=== PATIENT | female | born 1985 ===

== ENCOUNTER 2017-02-01 10:40 | Emergency (ER) | payer MEDICAID, OTHER ==
[2017-02-01 10:40] VITALS: BMI 19.7
[2017-02-01 10:49] VITALS: O2SAT 100
[2017-02-01 11:41] LABS: RBC URINE 8 /hpf (0-3); URINE BILIRUBIN NEGATIVE (NEGATIVE); URINE BLOOD 2+ (NEGATIVE); URINE COLOR Yellow (YELLOW); URINE GLUCOSE (UA) NORMAL (Normal); URINE KETONE NEGATIVE (NEGATIVE); URINE LEUKOCYTE ESTERASE NEG Leu/uL (Negative); URINE PROTEIN NEGATIVE (NEGATIVE); URINE UROBILINOGEN NORMAL mg/dL (0.2-1.0); WBC URINE 1 /hpf (0-5)
[2017-02-01] MEDS ORDERED: Sodium Chloride 0.9% 1,000 ML IV ONE (11:53)
[2017-02-01 12:03] LABS: BASO # 0.1 K/uL (0.0-0.2); EOS % 0.6 % (0.0-4.0); HEMATOCRIT 38.6 % (34.0-47.0); LYMPH # 1.6 K/uL (1.0-4.3); LYMPH % 24.4 % (20.0-40.0); MEAN CELL VOLUME 89.8 fL (81.0-99.0); MEAN CORPUSCULAR HEMOGLOBIN 29.7 pg (27.0-31.0); MEAN PLATELET VOLUME 9.5 fL (7.2-11.7); MONO # 0.4 K/uL (0.0-0.8); MONO % 5.5 % (0.0-10.0); RED CELL DISTRIBUTION WIDTH 12.8 % (11.5-14.5); WHITE BLOOD COUNT 6.5 K/uL (4.8-10.8)
[2017-02-01 12:17] LABS: CHLORIDE 100 mmol/L (98-107); POTASSIUM 3.6 mmol/L (3.6-5.2); SODIUM 137 mmol/L (132-148)
--- NOTE | 2017-02-01 12:18 | C.PDOC ---
History Of Present Illness 31 y/o female presents to ED with c/o pelvic cramping and pain radiating to her lower back, associated with vaginal bleeding and nausea for 10 days. Patient states LMP was 4/25 and she admits to history of irregular menses. Patient denies vomiting, diarrhea, dysuria/hematuria, fever, vaginal discharge. Time Seen by Provider: 02/01/17 11:09 Chief Complaint (Nursing): Abdominal Pain History Per: Patient History/Exam Limitations: no limitations Onset/Duration Of Symptoms: Days Current Symptoms Are (Timing): Still Present Severity: Mild Location Of Pain/Discomfort: Suprapubic Radiation Of Pain To:: Back Quality Of Discomfort: Cramping, "Pain" Associated Symptoms: Nausea, Back Pain. denies: Fever, Chills, Vomiting, Diarrhea, Urinary Symptoms Past Medical History Reviewed: Historical Data, Nursing Documentation, Vital Signs Vital Signs: Last Vital Signs Temp 98.5 F 02/01/17 14:02 Pulse 78 02/01/17 14:02 Resp 18 02/01/17 14:02 BP 103/67 02/01/17 14:02 Pulse Ox 100 02/01/17 14:02 - Medical History PMH: No Chronic Diseases Family History: States: No Known Family Hx - Social History Hx Alcohol Use: No Hx Substance Use: No - Immunization History Hx Tetanus Toxoid Vaccination: No Hx Influenza Vaccination: No Hx Pneumococcal Vaccination: No Review Of Systems Except As Marked, All Systems Reviewed And Found Negative. Constitutional: Negative for: Fever, Chills Respiratory: Negative for: Cough, Shortness of Breath Gastrointestinal: Positive for: Nausea. Negative for: Vomiting, Diarrhea Genitourinary: Positive for: Vaginal Bleeding, Pelvic Pain. Negative for: Dysuria, Vaginal Discharge Skin: Negative for: Rash Physical Exam - Physical Exam Appears: Well, Non-toxic, Other (in mild pain ) Skin: Warm, Dry, No Rash Head: Normacephalic Oral Mucosa: Moist Cardiovascular: Rhythm Regular Respiratory: Normal Breath Sounds, No Rales, No Rhonchi, No Wheezing Gastrointestinal/Abdominal: Bowel Sounds, Soft, Tenderness (mild, suprapubic TTP , (-) McBurney's, (-) Rovsing's), No Guarding, No Rebound Back: Normal Inspection, No CVA Tenderness Extremity: Normal ROM Neurological/Psych: Oriented x3 ED Course And Treatment - Laboratory Results Result Diagrams: 02/01/17 11:58 02/01/17 11:58 O2 Sat by Pulse Oximetry: 100 (RA) Pulse Ox Interpretation: Normal Progress Note: Blood work, UA, Upreg ordered and reviewed. Patient given IV NS bolus, IV zofran, and IV toradol. 13:50- On reassessment, patient is resting comfortably, in no pain/distress. On exam, abdomen is soft and nontender. Blood work, UA unremarkable, UPreg (-). Patient instructed to follow up with ob /lug loader within 1 week, given rxs for Naprosyn, Tylenol #3. She understands she should return to ED if symptoms worsen. Reevaluation Time: 13:30 Reassessment Condition: Improved (Patient reassessed, states she feels better but still has some pelvic cramping. PO Naprosyn ordered.) Disposition Counseled Patient/Family Regarding: Studies Performed, Diagnosis, Need For Followup, Rx Given - [facility] [Outside] Disposition: HOME/ ROUTINE Disposition Time: 13:50 Condition: STABLE Additional Instructions: SEGUIMIENTO CON OB / SENIOR MAINTENANCE TECHNICIAN DENTRO DE 1 SEMANA USE LOS MEDICAMENTOS QUE CARLOS NECESARIOS PARA EL DOLOR BEBIDA DE FLUIDOS NATHANIEL DEVUELVA A ER SI LOS SNTOMAS EMPEORARAN Prescriptions: Acetaminophen with Codeine [Tylenol with Codeine #3 Tablet] 1 each PO Q6 PRN # 12 tablet PRN Reason: pain Naproxen [Naprosyn Tab] 375 mg PO BID PRN #15 tab PRN Reason: pain Instructions: Dysmenorrhea (ED) Print Language: CROATIAN - POA Present On Arrival: None - Clinical Impression Clinical Impression: Irregular menses, Dysmenorrhea - Scribe Statement The provider has reviewed the documentation as recorded by the Scribkerry Cooney All medical record entries made by the Scribe were at my direction and personally dictated by me. I have reviewed the chart and agree that the record accurately reflects my personal performance of the history, physical exam, medical decision making, and the department course for this patient. I have also personally directed, reviewed, and agree with the discharge instructions and disposition.
[2017-02-01 12:19] LABS: GFR AFRICAN-AMERICAN > 60
[2017-02-01 12:20] LABS: ALB/GLOB RATIO 2.2 (1.0-2.1); ALKALINE PHOSPHATASE 54 U/L (38-126); ALT/SGPT 31 U/L (9-52); AST/SGOT 19 U/L (14-36); BILIRUBIN,TOTAL < 0.1 mg/dL (0.2-1.3); BLOOD UREA NITROGEN 11 mg/dL (7-17); CALCIUM 8.7 mg/dl (8.6-10.4); CARBON DIOXIDE 28 mmol/L (22-30); GLUCOSE,RANDOM 76 mg/dL (65-105); TOTAL PROTEIN 7.1 g/dL (6.3-8.3)
[2017-02-01] MEDS ORDERED: Sodium Chloride 0.9% 1,000 ML ONE (12:25)
[2017-02-01] MEDS ORDERED: Naproxen 550 mg Tab PO STA (13:37)
[2017-02-01] MEDS ORDERED: Naproxen 550 mg Tab PO ONE (13:41)
[2017-02-01 14:02] VITALS: BP 103/67; PULSE 78; RESP 18; TEMP 98.5
== END 2017-02-01 14:08 | disposition home or self-care (01) ==
LOC: C.ER 10:40
DX: N92.6 Irregular menstruation, unspecified (principal); N94.6 Dysmenorrhea, unspecified
CPT/HCPCS: 80053; 81001; 84703; 85025; 96361; 96374; 96375; 99285; J1885; J2405; J7040

== ENCOUNTER 2017-02-05 19:08 | Emergency (ER) | payer OTHER ==
[2017-02-05 19:09] VITALS: BMI 19.7
[2017-02-05 19:23] VITALS: BP 101/70; TEMP 97.9
--- NOTE | 2017-02-05 19:34 | C.PDOC ---
History Of Present Illness started with some chest discomfort Saturday night, which worsened. Dull , aching discomfort in her chest radiating into her left arm. No slurred speech, no visual changes , good strength equal, bilateral/. Time Seen by Provider: 02/05/17 19:34 Chief Complaint (Nursing): Chest Pain History Per: Patient History/Exam Limitations: no limitations Onset/Duration Of Symptoms: Days (2) Current Symptoms Are (Timing): Still Present Context: Other Severity: Moderate Pain Scale Rating Of: 4 Quality: Dull, Aching Associated Symptoms: denies: Nausea, Dyspnea Exacerbating Factors: Movement Alleviating Factors: None Recent travel outside of the [place]: No Additional History Per: Patient, Family Past Medical History Reviewed: Historical Data, Nursing Documentation, Vital Signs Vital Signs: Last Vital Signs Temp 97.9 F 02/05/17 19:23 Pulse 74 02/05/17 20:25 Resp 20 02/05/17 20:25 BP 101/70 02/05/17 20:25 Pulse Ox 99 02/05/17 20:25 Family History: States: No Known Family Hx - Social History Hx Alcohol Use: No Hx Substance Use: No - Immunization History Hx Tetanus Toxoid Vaccination: No Hx Influenza Vaccination: No Hx Pneumococcal Vaccination: No Review Of Systems Constitutional: Negative for: Fever, Chills Eyes: Negative for: Redness ENT: Negative for: Throat Pain Cardiovascular: Positive for: Chest Pain Respiratory: Negative for: Shortness of Breath Gastrointestinal: Negative for: Nausea, Vomiting, Abdominal Pain Genitourinary: Negative for: Dysuria Musculoskeletal: Positive for: Arm Pain. Negative for: Back Pain Skin: Negative for: Rash, Lesions, Jaundice, Bruising Neurological: Negative for: Weakness Psych: Negative for: Anxiety Physical Exam - Physical Exam Appears: Non-toxic, No Acute Distress Skin: Warm, Dry Head: Normacephalic Eye(s): bilateral: Normal Inspection Oral Mucosa: Moist Neck: Trachea Midline, Supple Chest: Symmetrical Cardiovascular: Rhythm Regular Respiratory: No Rales, No Rhonchi, No Wheezing Gastrointestinal/Abdominal: Soft, No Tenderness, No Distention, No Guarding, No Rebound Back: Normal Inspection Extremity: Normal ROM Extremity: Bilateral: Atraumatic, Normal Color And Temperature Neurological/Psych: Oriented x3, Normal Speech, Normal Cognition Gait: Steady ED Course And Treatment - Laboratory Results Result Diagrams: 02/05/17 20:04 02/05/17 20:04 ECG: Interpreted By Me, Viewed By Me ECG Rhythm: Sinus Rhythm (66), Nonspecific Changes O2 Sat by Pulse Oximetry: 100 Pulse Ox Interpretation: Normal - Radiology CXR: Interpreted by Me, Viewed By Me CXR Interpretation: No: Infiltrates, Fracture, Pnemothorax Progress Note: cardiac work up, asa Medical Decision Making Medical Decision Making: I considered the following diagnoses: acute coronary syndrome, pulmonary embolism, lower respiratory infection, aortic dissection/aneurysm, pneumothorax , pericarditis, esophagitis/GERD, zoster and esophageal rupture but found them to be unlikely based on the history, physical exam, and diagnostics. My conclusions regarding the unlikely diagnoses were based on: the absence of significant EKG abnormalities, the lack of suggestive x-ray findings, the absence of significant abnormalities on cardiac monitoring, the absence of asymmetric pulses. Pt feels fine, chest pain free and wants to go home Upon provider reevaluation patient is feeling better, is medically stable, and requires no further treatment in the ED at this time. Patient will be discharged home with Rx for motrin . Counseling was provided and all questions were answered regarding diagnosis and need for follow up with the referred clinic. There is agreement to discharge plan. Return if symptoms persist or worsen. Disposition Counseled Patient/Family Regarding: Studies Performed, Diagnosis, Need For Followup - Disposition Referrals: [facility] [Outside] [facility] [Outside] Disposition: HOME/ ROUTINE Disposition Time: 19:34 Condition: FAIR Prescriptions: Ibuprofen [Motrin] 600 mg PO TID PRN #15 tab PRN Reason: Pain, Moderate (4-7) Instructions: Costochondritis (ED) Print Language: MALAY - Clinical Impression Clinical Impression: Costochondral chest pain, Chest wall pain
[2017-02-05] MEDS ORDERED: Aspirin 325 mg EC Tablets PO STA (19:41)
[2017-02-05 20:08] LABS: RBC URINE 21 /hpf (0-3); URINE BACTERIA RARE (<OCC); URINE BILIRUBIN NEGATIVE (NEGATIVE); URINE BLOOD 2+ (NEGATIVE); URINE COLOR Straw (YELLOW); URINE GLUCOSE (UA) NORMAL (Normal); URINE KETONE NEGATIVE (NEGATIVE); URINE LEUKOCYTE ESTERASE NEG Leu/uL (Negative); URINE PROTEIN NEGATIVE (NEGATIVE); URINE UROBILINOGEN NORMAL mg/dL (0.2-1.0); WBC URINE 3 /hpf (0-5)
[2017-02-05 20:10] LABS: BASO # 0.1 K/uL (0.0-0.2); EOS # 0.1 K/uL (0.0-0.7); EOS % 1.5 % (0.0-4.0); HEMATOCRIT 39.3 % (34.0-47.0); LYMPH # 2.3 K/uL (1.0-4.3); LYMPH % 30.5 % (20.0-40.0); MEAN CORPUSCULAR HEMOGLOBIN 29.7 pg (27.0-31.0); MEAN CORPUSCULAR HGB CONC 33.4 g/dL (33.0-37.0); MEAN PLATELET VOLUME 9.2 fL (7.2-11.7); MONO # 0.6 K/uL (0.0-0.8); MONO % 7.6 % (0.0-10.0); RED CELL DISTRIBUTION WIDTH 12.8 % (11.5-14.5); WHITE BLOOD COUNT 7.5 K/uL (4.8-10.8)
[2017-02-05 20:15] LABS: CHLORIDE 98 mmol/L (98-107)
[2017-02-05 20:16] LABS: INR 1.1; POTASSIUM 4.1 mmol/L (3.6-5.2); SODIUM 137 mmol/L (132-148)
[2017-02-05 20:18] LABS: ALB/GLOB RATIO 1.7 (1.0-2.1); ALKALINE PHOSPHATASE 45 U/L (38-126); AST/SGOT 14 U/L (14-36); BILIRUBIN,TOTAL 0.5 mg/dL (0.2-1.3); BLOOD UREA NITROGEN 12 mg/dL (7-17); CARBON DIOXIDE 28 mmol/L (22-30); GFR AFRICAN-AMERICAN > 60; GLUCOSE,RANDOM 85 mg/dL (65-105)
[2017-02-05 20:19] LABS: ALT/SGPT 23 U/L (9-52); CALCIUM 8.1 mg/dl (8.6-10.4)
[2017-02-05 20:26] VITALS: PULSE 74; RESP 20
[2017-02-05 21:29] VITALS: O2SAT 100
--- NOTE | 2017-02-06 08:21 | RAD ---
PROCEDURE: CHEST RADIOGRAPH, 1 VIEW HISTORY: chest pain COMPARISON: None available. FINDINGS: LUNGS: Clear. PLEURA: No pneumothorax or pleural fluid seen. CARDIOVASCULAR: Normal. OSSEOUS STRUCTURES: No significant abnormalities. VISUALIZED UPPER ABDOMEN: Normal. OTHER FINDINGS: None. IMPRESSION: No active disease.
--- NOTE | 2017-03-05 12:19 | CARD ---
APPROVED REPORT EKG Measurement Heart [id number] <Conclusion> Normal sinus rhythm with sinus arrhythmia Normal ECG
== END 2017-02-05 21:45 | disposition home or self-care (01) ==
LOC: C.ER 19:08
DX: R07.89 Other chest pain (principal)
CPT/HCPCS: 71010; 80053; 81001; 84484; 84703; 85025; 85610; 85730; 96374; 99284; J1885

== ENCOUNTER 2017-10-07 20:33 | Emergency (ER) | payer OTHER ==
[2017-10-07 20:34] VITALS: BMI 19.7
[2017-10-07 20:50] VITALS: BP 112/74; PULSE 78; RESP 18; TEMP 98.4; O2SAT 100
[2017-10-07 21:34] LABS: HEMOGLOBIN 13.4 g/dL (11.0-16.0); MEAN CELL VOLUME 88.9 fL (81.0-99.0); MEAN CORPUSCULAR HEMOGLOBIN 30.8 pg (27.0-31.0); MEAN CORPUSCULAR HGB CONC 34.6 g/dL (33.0-37.0); MEAN PLATELET VOLUME 9.1 fL (7.2-11.7); RBC 4.34 Mil/uL (3.80-5.20); RED CELL DISTRIBUTION WIDTH 12.2 % (11.5-14.5); WHITE BLOOD COUNT 6.9 K/uL (4.8-10.8)
[2017-10-07 21:46] LABS: ALB/GLOB RATIO 1.4 (1.0-2.1); ALT/SGPT 24 U/L (9-52); AST/SGOT 20 U/L (14-36); BLOOD UREA NITROGEN 12 mg/dL (7-17); CALCIUM 8.2 mg/dl (8.6-10.4); GFR AFRICAN-AMERICAN > 60; GFR NON-AFRICAN AMERICAN > 60
--- NOTE | 2017-10-07 23:02 | C.PDOC ---
History Of Present Illness 32 year old female presents to the ER with a complaint of malaise, body aches, headache, and dry cough for the past week. Patient also reports a "heaviness sensation" to the bilateral lower extremities Pt noted that she noticed redness to the 4th left toe 2 days ago now with pain. Denies incontinence, recent trauma , or fever. Time Seen by Provider: 10/07/17 21:00 Chief Complaint (Nursing): Lower Extremity Problem/Injury History Per: Patient History/Exam Limitations: no limitations Onset/Duration Of Symptoms: Days Current Symptoms Are (Timing): Still Present Recent travel outside of the [place]: No Past Medical History Reviewed: Historical Data, Nursing Documentation, Vital Signs Vital Signs: Last Vital Signs Temp 98.4 F 10/07/17 20:47 Pulse 78 10/07/17 20:47 Resp 18 10/07/17 20:47 BP 112/74 10/07/17 20:47 Pulse Ox 100 10/07/17 23:57 - Medical History PMH: No Chronic Diseases Surgical History: No Surg Hx Family History: States: Unknown Family Hx - Social History Hx Alcohol Use: No Hx Substance Use: No - Immunization History Hx Tetanus Toxoid Vaccination: No Hx Influenza Vaccination: Yes Hx Pneumococcal Vaccination: No Review Of Systems Constitutional: Negative for: Fever, Chills Respiratory: Positive for: Cough (Dry) Genitourinary: Negative for: Dysuria, Incontinence, Hematuria Musculoskeletal: Positive for: Other (Bilateral leg "heaviness". Body aches. Left toe redness.) Neurological: Positive for: Headache Physical Exam - Physical Exam Appears: Non-toxic, No Acute Distress Skin: Normal Color, Warm, Dry Head: Atraumatic, Normacephalic Eye(s): bilateral: Normal Inspection Oral Mucosa: Moist Throat: Normal, No Erythema, No Exudate Neck: Normal, Supple Chest: Symmetrical, No Tenderness Cardiovascular: Rhythm Regular Respiratory: Normal Breath Sounds, No Rales, No Rhonchi, No Wheezing Gastrointestinal/Abdominal: Soft, No Tenderness Back: No Vertebral Tenderness, No Paraspinal Tenderness Extremity: Normal ROM (x4), Capillary Refill (<2 seconds), Other (left 4th toe erythematous, warm to touch w/ small pimple to right distal side) Pulses: Left Dorsalis Pedis: Normal, Right Dorsalis Pedis: Normal Neurological/Psych: Oriented x3, Normal Speech, Normal Motor, Normal Sensation Gait: Steady ED Course And Treatment - Laboratory Results Result Diagrams: 10/07/17 21:31 10/07/17 21:31 O2 Sat by Pulse Oximetry: 100 (Room air) Pulse Ox Interpretation: Normal - Other Rad Left foot 4th digit x-ray X-Ray: Interpreted by Me, Viewed By Me Interpretation: No acute fractures or dislocations. Progress Note: Blood work and left foot 4th digit x-ray ordered, results were negative. Toradol administered. On reevaluation, patient reports improvement of pain, discussed imaging and lab results with patient, will start her on antibiotics and instruct to follow up with PMD or return to ER if symptoms worsen. Patient agrees with plan. Disposition - Disposition Referrals: [facility] [Outside] Disposition: HOME/ ROUTINE Disposition Time: 22:58 Condition: STABLE Additional Instructions: Increase PO fluids' Take meds as directed Leg elevation Return to ER if worse Prescriptions: Cephalexin [cephalexin] 500 mg PO QID #20 cap Ibuprofen [Motrin] 1 tab PO TID PRN #20 tab PRN Reason: Pain Instructions: Cellulitis (ED), Viral Syndrome (ED) Forms: [employer] (Uzbek) Print Language: SINHALA - Clinical Impression Clinical Impression: Cellulitis of fourth toe of left foot, Viral illness - PA / SAFETY COORDINATOR / Resident Statement MD/DO has reviewed & agrees with the documentation as recorded. - Scribe Statement The provider has reviewed the documentation as recorded by the Scribe Simon Kamara All medical record entries made by the Scribe were at my direction and personally dictated by me. I have reviewed the chart and agree that the record accurately reflects my personal performance of the history, physical exam, medical decision making, and the department course for this patient. I have also personally directed, reviewed, and agree with the discharge instructions and disposition.
--- NOTE | 2017-10-08 08:21 | RAD ---
PROCEDURE: HISTORY: pain, redness to left 4th toe COMPARISON: None TECHNIQUE: Four views FINDINGS: No fracture or dislocation. Soft tissue swelling and increased density surrounding the 4th distal phalanx IMPRESSION: No fracture or dislocation. Fourth digital soft tissue swelling
== END 2017-10-07 23:18 | disposition home or self-care (01) ==
LOC: C.ER 20:33
DX: L03.032 Cellulitis of left toe (principal); B34.9 Viral infection, unspecified
CPT/HCPCS: 73660; 80053; 85027; 96374; 99284; J1885

== ENCOUNTER 2017-12-29 07:57 | Emergency (ER) | payer OTHER ==
[2017-12-29 07:58] VITALS: BMI 19.7
[2017-12-29 08:09] VITALS: BP 115/77; PULSE 79; RESP 20; TEMP 97.6; O2SAT 99
--- NOTE | 2017-12-29 08:25 | C.PDOC ---
History Of Present Illness 32 y/o F c no PMHx p/w R hand/wrist pain x 2 days since patient had mechanical fall getting out of shower. Denies headstrike, LOC, N/V, complains only of pain in R hand/wrist. Patient took acetaminophen this morning. Time Seen by Provider: 12/29/17 08:18 Chief Complaint (Nursing): Upper Extremity Problem/Injury Past Medical History Vital Signs: Last Vital Signs Temp 97.6 F 12/29/17 08:08 Pulse 79 12/29/17 08:08 Resp 20 12/29/17 08:08 BP 115/77 12/29/17 08:08 Pulse Ox 99 12/29/17 09:28 Family History: States: Unknown Family Hx - Social History Hx Alcohol Use: No Hx Substance Use: No - Immunization History Hx Tetanus Toxoid Vaccination: No Hx Influenza Vaccination: Yes Hx Pneumococcal Vaccination: No Review Of Systems Except As Marked, All Systems Reviewed And Found Negative. Constitutional: Negative for: Fever Respiratory: Negative for: Shortness of Breath Physical Exam - Physical Exam Additional Physical Exam Comments: Gen: NAD Head: AT Neck: No midline tenderness Chest: No tenderness Skin: No laceration Extremities: Mild R hand edema hypothenar, +snuffbox tenderness. No tenderness of forearm, elbow, humerus, shoulder with FROM of all. CV: Radial pulse 2+, cap refill < 2 seconds Neuro: Sensation to light touch intact in digits. Moves all digits. ED Course And Treatment O2 Sat by Pulse Oximetry: 99 Medical Decision Making Medical Decision Making: Toradol for pain. XR to evaluate for fracture. Right hand X-ray: Impression: Negative acute. If pain persists, consider MRI. Right wrist x-ray: Impression: Negative acute. If pain persists, consider MRI. Thumb spica placed. Follow up Ortho/clinic, return to ED for worsening pain, numbness, skin color changes, or any other problem. Disposition - Disposition Referrals: Fernando Ravi III, MD [Staff Provider] - [facility] [Outside] Disposition: HOME/ ROUTINE Disposition Time: 10:08 Condition: STABLE Prescriptions: Ibuprofen [Motrin] 1 tab PO Q6 #30 tab Instructions: Common Wrist Injuries Forms: [employer] (Albanian) - Clinical Impression Clinical Impression: Hand injury
--- NOTE | 2017-12-29 09:25 | RAD ---
Right hand three views History: Injury. Comparison: None available. Findings: No evidence of acute displaced fracture or dislocation. Impression: Negative acute. If pain persists, consider MRI.
--- NOTE | 2017-12-29 17:27 | RAD ---
Right wrist four views History: Fall. Comparison: None available. Findings: No evidence for acute displaced fracture or dislocation. Impression: Negative acute. If pain persists, consider MRI.
== END 2017-12-29 10:42 | disposition home or self-care (01) ==
LOC: C.ER 07:57
DX: S69.91XA Unspecified injury of right wrist, hand and finger(s), initial encounter (principal); W01.0XXA Fall on same level from slipping, tripping and stumbling without subsequent striking against object, initial encounter; Y93.E1 Activity, personal bathing and showering; Y92.002 Bathroom of unspecified non-institutional (private) residence as the place of occurrence of the external cause
CPT/HCPCS: 73110; 73130; 96372; 99284; J1885